=== PATIENT | male | born 1945 | race Asian ===

== ENCOUNTER 2018-07-31 12:19 | Inpatient (IN) | payer OTHER ==
[~2018-07-31] VITALS: Ht 167.6 cm; Wt 70.3 kg
--- NOTE | 2018-07-31 13:09 | NUR ---
PT TAKEN IN WHEELCHAIR TO ER BED 08
[2018-07-31 13:10] VITALS: BP 99/66
--- NOTE | 2018-07-31 13:22 | NUR ---
PER DAUGHTER PT WAS SEND FROM A [facility] PER INSURANCE PROTOCOL FOR EVALUATION AND ADMISSION BEFORE THE NURSING WILL ADMIT HIM FOR THE FIRST TIME. DENIES PAIN, SOB OR ANY COMPLAINT AT THIS TIME HX; DEMENTIA, ALZ RX; CLOPIDEGEL, ROSUVASTATIN, SILENOR, DUTARTERIDE, TAMSULOSIN, MEMANTINE
[2018-07-31] MEDS ORDERED: ONDANSETRON 4 MG/2 ML VIAL IVP PRN (13:50)
[2018-07-31] MEDS ORDERED: ACETAMINOPHEN 325 MG TAB PO PRN (13:50)
[2018-07-31] MEDS ORDERED: MEMA10TA PO (13:56)
[2018-07-31] MEDS ORDERED: DUTA0.5C PO (13:58)
[2018-07-31] MEDS ORDERED: CLOP75TA55 PO (13:59)
[2018-07-31] MEDS ORDERED: TAMS0.4C96 PO (14:00)
[2018-07-31] MEDS ORDERED: [UNRECOGNIZED DRUG - CODE] PO (14:01)
[2018-07-31] MEDS ORDERED: ROSU20TA PO (14:01)
[2018-07-31 14:33] LABS: BASOPHILS % (AUTO) 0.5 % (0.0-2.0); EOSINOPHILS # (AUTO) 0.2 K/uL (0-0.4); EOSINOPHILS % (AUTO) 2.8 % (0.0-4.0); HEMATOCRIT 41.7 % (36-52); HEMOGLOBIN 13.5 g/dL (12.0-18.0); LYMPHOCYTES # (AUTO) 1.6 K/uL (2.0-11.5); LYMPHOCYTES % (AUTO) 24.6 % (20.5-51.1); MEAN CORPUSCULAR HEMOGLOBIN 32 pg (27-31); MEAN CORPUSCULAR HGB CONC 32 g/dL (33-37); MEAN CORPUSCULAR VOLUME 97.9 fL (80-94); MONOCYTES # (AUTO) 0.6 K/uL (0.8-1.0); MONOCYTES % (AUTO) 9.4 % (1.7-9.3); NEUTROPHILS % (AUTO) 62.7 % (42.2-75.2); PLATELET COUNT (AUTO) 213 K/uL (140-450); RED BLOOD CELL COUNT(AUTO) 4.26 MIL/uL (4.20-6.10); RED CELL DISTRIBUTION WIDTH 13.9 % (11.6-13.7); WHITE BLOOD COUNT (AUTO) 6.4 K/uL (4.8-10.8)
[2018-07-31 15:00] VITALS: BP 107/59
--- NOTE | 2018-07-31 15:02 | NUR ---
Patient will be admitted to care of DR KIRAN. Admited to MS. Will go to room 106A. Belongings list completed. Report to ANTOINE RODRIGUEZ.
--- NOTE | 2018-07-31 15:15 | NUR ---
Admitted from ED, with chief complaint of GENERALIZED WEAKNESS. PT AAOX2, CONFUSED WITH HX OF DEMENTIA AND ALZHEIMER'S. NO SOB NOTED. NO C/O PAIN AT THIS TIME. IV TO LT AC PATENT AND INTACT. CHEST CLEAR. ABDOMEN SOFT, BOWEL SOUNDS PRESENT. NO EDEMA NOTED. PT IS A 73 y/o ,Male, Cooperative,oriented to call light, bed, phone,television, bathroom, smoking policy,visiting hours, procedures, ID bracelet on. Belongings list checked. PT'S DAUGHTER AT THE BEDSIDE. CALL LIGHT WITHIN REACH, BED ON LOWEST POSITION. FALL RISK INITIATED. PT AND DAUGHTER VERBALIZED UNDERSTANDING.
[2018-07-31 15:21] LABS: ANION GAP 8.7 (8-16); CARBON DIOXIDE 30.5 mmol/L (21-32); CHLORIDE 104 mmol/L (98-107); CREATININE 0.9 mg/dL (0.7-1.3); GLUCOSE 106 mg/dL (74-106); POTASSIUM 4.2 mmol/L (3.5-5.1); SODIUM SERUM 139 mmol/L (136-145); UREA NITROGEN, BLOOD 11 mg/dL (7-18)
[2018-07-31 15:28] LABS: ALBUMIN 3.5 g/dL (3.4-5.0); ASPARTATE AMINOTRANSFERASE 26 U/L (15-37); TOTAL BILIRUBIN 0.3 mg/dL (0.0-1.0)
[2018-07-31 15:51] LABS: PROTHROMBIN TIME 9.4 secs (10.8-13.4)
[2018-07-31 15:54] LABS: MAGNESIUM 2.2 mg/dL (1.8-2.4)
[2018-07-31 15:55] LABS: FREE T4 (FREE THYROXINE) 0.84 ng/dL (0.76-1.46); PHOSPHORUS 3.3 mg/dL (2.5-4.9); THYROID STIMULATING HORMONE 0.67 uIU/mL (0.34-3.74)
[2018-07-31] MEDS: NACL 0.9% 1,000 ML IV SCH (17:54)
--- NOTE | 2018-07-31 18:00 | NUR ---
PT PULLED OUT PRESENT IV, RESTARTED A NEW LINE ON LT HNAD WITH GAUGE 20, SITE WRAPPED WITH KERLIX.
--- NOTE | 2018-07-31 18:14 | NUR ---
CALLED PT'S DAUGHTER KIMBERLI TO BRING ALL THE PT'S HOME MEDICATIONS, STATED SHE WILL COME BY TOMORROW TO BRING ALL THE MEDS.
--- NOTE | 2018-07-31 18:45 | NUR ---
URINE SPECIMEN AND INFLUENZA A&B COLLECTED AND SENT TO LAB.
--- NOTE | 2018-07-31 19:05 | NUR ---
PT AWAKE, WATCHING TV. NO SOB NOTED. NO SIGNS OF PAIN. ENDORSED TO NEXT SHIFT NURSE FOR CONTINUITY OF CARE.
--- NOTE | 2018-07-31 19:20 | NUR ---
RECEIVED BEDSIDE REPORT FROM AM NURSE. PT AAOX2, CONFUSED WITH HX OF DEMENTIA AND ALZHEIMER'S. NO SOB NOTED. NO C/O PAIN AT THIS TIME. IV TO LEFT HAND, PATENT AND INTACT. CHEST CLEAR. ABDOMEN SOFT, BOWEL SOUNDS PRESENT. NO EDEMA NOTED. FALL RISK MAINTAINED. CALL LIGHT WITHIN REACH, BED ON LOWEST POSITION. WILL MONITOR
[2018-07-31 19:36] LABS: APPEARANCE,URINE CLEAR (CLEAR); BILIRUBIN,URINE NEGATIVE (NEGATIVE); BLOOD, URINE NEGATIVE (NEGATIVE); COLOR,URINE YELLOW (YELLOW); LEUKOCYTE ESTERASE ,URINE NEGATIVE (NEGATIVE); NITRITE, URINE NEGATIVE (NEGATIVE); UGLUCOSE NEGATIVE (NEGATIVE)
[2018-07-31 20:00] VITALS: BP 117/67
[2018-07-31] MEDS: SIMVASTATIN 40 MG TAB PO SCH (21:04)
[2018-07-31] MEDS: DOCUSATE SODIUM 100 MG GELCAP PO SCH (21:04)
--- NOTE | 2018-07-31 23:00 | NUR ---
PT WANTING TO AMBULATE, ASSISTED TO AMBULATE WITHIN THE ROOM AND HALLWAY BY CMM INSPECTOR WITH THE USE OF THE CANE. PT TOLERATING WELL
[2018-08-01] VITALS: BP 117/68
--- NOTE | 2018-08-01 02:00 | NUR ---
PT ATTEMPTED TO PULL IV ON LEFT HAND. STILL INTACT AND PATENT, REINFORCED W/ KERLIX TO PREVENT PT PULLING IV.
--- NOTE | 2018-08-01 03:00 | NUR ---
PT TRYING TO GET UP ON HIS OWN, AMBULATED W/ STANDBY ASSIST TO THE BATHROOM.TOLERATING WELL. PT IN STABLE CONDIITION
[2018-08-01 04:00] VITALS: BP 117/67
--- NOTE | 2018-08-01 07:03 | NUR ---
WILL ENDORSE TO NEXT SHIFT PT IN STABLE CONDITION.
--- NOTE | 2018-08-01 07:30 | NUR ---
RECEIVED PT ON BED AAOX2, CONFUSED. NO SOB NOTED, NO C/O PAIN AT THIS TIME. IV TO LT HAND PATENT AND INTACT. CHEST, DIMINISHED AIR ENTRY TO THE BASES, OTHERWISE CLEAR. ABDOMEN SOFT, BOWEL SOUNDS PRESENT. BED ON LOWEST POSITION, BED ALARM ON, CALL LIGHT WITHIN REACH. PT VERBALIZED PARTIAL UNDERSTANDING.
[2018-08-01 07:45] LABS: BASOPHILS # (AUTO) 0.1 K/uL (0.00-0.22); BASOPHILS % (AUTO) 0.9 % (0.0-2.0); EOSINOPHILS # (AUTO) 0.3 K/uL (0-0.4); EOSINOPHILS % (AUTO) 3.8 % (0.0-4.0); HEMOGLOBIN 12.4 g/dL (12.0-18.0); LYMPHOCYTES # (AUTO) 2.6 K/uL (2.0-11.5); LYMPHOCYTES % (AUTO) 38.1 % (20.5-51.1); MEAN CORPUSCULAR HEMOGLOBIN 32 pg (27-31); MEAN CORPUSCULAR HGB CONC 33 g/dL (33-37); MEAN CORPUSCULAR VOLUME 97.8 fL (80-94); MONOCYTES # (AUTO) 0.6 K/uL (0.8-1.0); MONOCYTES % (AUTO) 9.2 % (1.7-9.3); NEUTROPHILS # (AUTO) 3.2 K/uL (1.8-7.7); PLATELET COUNT (AUTO) 198 K/uL (140-450); RED BLOOD CELL COUNT(AUTO) 3.88 MIL/uL (4.20-6.10); RED CELL DISTRIBUTION WIDTH 13.9 % (11.6-13.7); WHITE BLOOD COUNT (AUTO) 6.8 K/uL (4.8-10.8)
[2018-08-01 08:00] VITALS: BP 148/82
--- NOTE | 2018-08-01 08:15 | NUR ---
CALLED PT' S DAUGHTER KIMBERLI #[phone] AND REMINDED HER TO BRING PT'S HOME MEDS, KIMBERLI STATED SHE WILL BE HERE AROUND LUNCH TIME.
[2018-08-01 08:18] LABS: MAGNESIUM 2.2 mg/dL (1.8-2.4); PHOSPHORUS 3.7 mg/dL (2.5-4.9)
[2018-08-01 08:22] LABS: ANION GAP 11.6 (8-16); CARBON DIOXIDE 29.4 mmol/L (21-32); CHLORIDE 103 mmol/L (98-107); CREATININE 0.8 mg/dL (0.7-1.3); GLUCOSE 94 mg/dL (74-106); SODIUM SERUM 140 mmol/L (136-145); UREA NITROGEN, BLOOD 18 mg/dL (7-18)
--- NOTE | 2018-08-01 08:30 | NUR ---
PT PULLED OUT PRESENT IV WHILE IN BED. RESTARTED A NEW LINE ON RT HAND WITH GAUGE 20, SITE WRAPPED WITH KERLIX.
--- NOTE | 2018-08-01 08:38 | NUR ---
PATIENT HAS BEEN SCREENED AND CATEGORIZED MODERATE NUTRITION RISK. PATIENT WILL BE SEEN WITHIN 3-5 DAYS OF ADMISSION. 08/03/18 08/05/[address]
[2018-08-01] MEDS ORDERED: NON-FORMULARY ITEM (Rosuvastatin Calcium* (Crestor*) 20 MG) PO SCH (09:00)
[2018-08-01] MEDS: TAMSULOSIN 0.4 MG CAP PO SCH (09:02)
[2018-08-01] MEDS: DOCUSATE SODIUM 100 MG GELCAP PO SCH ×2 (09:03→22:07)
[2018-08-01] MEDS: CLOPIDOGREL 75 MG TAB PO SCH (09:03)
--- NOTE | 2018-08-01 09:30 | NUR ---
PHYSICAL THERAPY ON GOING AT THE BEDSIDE.
[2018-08-01 09:32] LABS: CHOL/HDL RATIO 2.8 (1-4.5)
--- NOTE | 2018-08-01 10:00 | NUR ---
PT HAS BEEN GOING TO THE BATHROOM CONTINENTLY WITH ASSISTANCE. ACTIVITY TOLERATED WELL.
--- NOTE | 2018-08-01 11:30 | NUR ---
PT WHEELED TO CT DEPT IN STABLE CONDITION.
--- NOTE | 2018-08-01 11:45 | NUR ---
PT CAME BACK FROM CT SCAN DEPT IN STABLE CONDITION. NO COMPLAINTS MADE.
--- NOTE | 2018-08-01 12:05 | NUR ---
PT'S DAUGHTER KIMBERLI CAME PT'S HOME MEDS. MEDS GIVEN TO PHARMACY FOR SAFE KEEPING. PT'S BELONGING'S LIST UP DATED.
[2018-08-01] MEDS ORDERED: MEMANTINE 21 MG PO SCH (12:31)
--- NOTE | 2018-08-01 12:43 | NUR ---
CHART REVIEW DONE.
[2018-08-01] MEDS: NACL 0.9% 1,000 ML IV SCH (13:49)
--- NOTE | 2018-08-01 14:05 | NUR ---
PT RESTING QUIETLY IN BED. NO SOB NOTED. NO SIGNS OF PAIN.
[2018-08-01 16:00] VITALS: BP 107/65
--- NOTE | 2018-08-01 16:00 | NUR ---
PT KEEPS ON GOING OUT OF BED TO HAV A BOWEL MOVEMENT BUT UNABLE TO. PER DAUGHTER UPON ADMISSIION THAT PT IS GOING EVERY DAY. NO BM NOTED SINCE THIS MORNING. DR. GONZALEZ NOTIFIED AND WILL GIVE ORDER.
--- NOTE | 2018-08-01 16:16 | NUR ---
Practice Professional Note: I faxed inquiry to [facility] per patient's daughter Merry's request . Merry requested assistance with intermodal dispatcher prison snf placement for patient. I received a call from Colin at [facility] , she stated they are able to accept patient and bed will be available on 08/03/18, made aware. Colin is aware patient will need prison prison placement. I called and spoke with Merry to inform her patient has been accepted at [facility] and will be transfer once physician determines patient is medically stable. She verbalized understanding.
[2018-08-01] MEDS ORDERED: MAGNESIUM HYDROXIDE 2400 MG/30 ML UDC PO SCH (16:19)
--- NOTE | 2018-08-01 18:15 | NUR ---
PT CONSUMED 100% ON DINNER SERVED. FOOD TOLERATED WELL.
--- NOTE | 2018-08-01 19:14 | NUR ---
PT AWAKE, WALKING IN THE HALLWAY WITH STATION INSTALLER AND REPAIRER. ACTIVITY TOLERATED WELL. ENDORSED TO NEXT SHIFT NURSE FOR CONTINUITY OF CARE.
--- NOTE | 2018-08-01 19:40 | NUR ---
RECEIVED BEDSIDE REPORT FROM AM NURSE. PT AAOX2, CONFUSED WITH HX OF DEMENTIA AND ALZHEIMER'S. NO SOB NOTED. NO C/O PAIN AT THIS TIME. IV TO LEFT HAND, PATENT AND INTACT. PT WALKING IN THE UNIT WITH 1 ASSIST USING CANE. NO EDEMA NOTED. FALL RISK MAINTAINED WILL MONITOR
[2018-08-01] MEDS ORDERED: QUEtiapine FUMARATE 25 MG TAB PO SCH (21:00)
--- NOTE | 2018-08-01 21:00 | NUR ---
PT AMBULATING WITH CANE WITH 1 PERSON ASSIST STEAM TRAP WORKER, PT FALL RISK. MAINTAINED FALL RISK PRECAUTION. STAFF KEEPING WATCH ON PT, TRYING TO AMBULATE BY HIMSELF.ABLE TO DO SO WITH 1 ASSIST.
--- NOTE | 2018-08-01 21:10 | NUR ---
PT PULLED OUT PRESENT IV ON THE RIGHT HAND. PT WAS ON TKO .
--- NOTE | 2018-08-01 21:30 | NUR ---
PT ABLE TO TOLERATE MEDICATIONS ADMINISTERED, COUGH STILL PRESENT. NO OTHER COMPLAINTS.WILL CONTINUE TO MONITOR Addendum: 08/02/18 at 0300 by Marleny Lazaro RN PT ABLE TO TOLERATE MEDICATIONS ADMINISTERED, NO OTHER COMPLAINTS.WILL CONTINUE TO MONITOR
--- NOTE | 2018-08-01 22:00 | NUR ---
MEDICATIONS ORDERED GIVEN, PT ABLE TO SWALLOW WITH ASPIRATION PRECAUTION.
[2018-08-01] MEDS: SIMVASTATIN 40 MG TAB PO SCH (22:06)
--- NOTE | 2018-08-02 01:00 | NUR ---
PT SLEEPING, PT IN STABLE CONDITION.
--- NOTE | 2018-08-02 03:07 | NUR ---
INFORMED THAT EARLIER PT PULLED IV. NO IV DUE MEDS,ONLY P.O MEDS DUE. TRY TO REINSERT ONCE IV MEDS NEEDED. DR. GUTIERREZ AWARE.
[2018-08-02 05:58] LABS: BASOPHILS % (AUTO) 0.7 % (0.0-2.0); EOSINOPHILS # (AUTO) 0.2 K/uL (0-0.4); HEMATOCRIT 36.8 % (36-52); HEMOGLOBIN 11.9 g/dL (12.0-18.0); LYMPHOCYTES # (AUTO) 2.1 K/uL (2.0-11.5); LYMPHOCYTES % (AUTO) 36.3 % (20.5-51.1); MEAN CORPUSCULAR HEMOGLOBIN 32 pg (27-31); MEAN CORPUSCULAR HGB CONC 32 g/dL (33-37); MEAN CORPUSCULAR VOLUME 97.4 fL (80-94); MONOCYTES # (AUTO) 0.6 K/uL (0.8-1.0); MONOCYTES % (AUTO) 10.3 % (1.7-9.3); NEUTROPHILS # (AUTO) 2.8 K/uL (1.8-7.7); NEUTROPHILS % (AUTO) 48.7 % (42.2-75.2); PLATELET COUNT (AUTO) 205 K/uL (140-450); RED BLOOD CELL COUNT(AUTO) 3.78 MIL/uL (4.20-6.10); RED CELL DISTRIBUTION WIDTH 13.9 % (11.6-13.7); WHITE BLOOD COUNT (AUTO) 5.8 K/uL (4.8-10.8)
[2018-08-02 06:00] VITALS: BP 145/75
--- NOTE | 2018-08-02 07:12 | NUR ---
ENDORSED REPORT TO AM SHIFT NURSE FOR CONTINUITY OF CARE. PT NO COMPLAINTS AT THIS TIME, IN STABLE CONDITION.
[2018-08-02] MEDS ORDERED: HEPA500056 IV (07:15)
[2018-08-02] MEDS ORDERED: ACET-1182 PO (07:15)
[2018-08-02] MEDS ORDERED: QUET25TA46 PO (07:15)
[2018-08-02] MEDS ORDERED: DOCU-299 PO (07:15)
[2018-08-02] MEDS ORDERED: DONE10TA10 PO (07:15)
[2018-08-02 08:51] LABS: MAGNESIUM 2.3 mg/dL (1.8-2.4); PHOSPHORUS 3.9 mg/dL (2.5-4.9)
[2018-08-02 08:53] LABS: CARBON DIOXIDE 28.8 mmol/L (21-32); CHLORIDE 105 mmol/L (98-107); CREATININE 0.8 mg/dL (0.7-1.3); GLUCOSE 102 mg/dL (74-106); POTASSIUM 3.8 mmol/L (3.5-5.1); SODIUM SERUM 143 mmol/L (136-145); UREA NITROGEN, BLOOD 15 mg/dL (7-18)
[2018-08-02] MEDS: TAMSULOSIN 0.4 MG CAP PO SCH (09:46)
[2018-08-02] MEDS: DOCUSATE SODIUM 100 MG GELCAP PO SCH ×2 (09:46→20:38)
[2018-08-02] MEDS: MEMANTINE 21 MG PO SCH (09:47)
[2018-08-02] MEDS: CLOPIDOGREL 75 MG TAB PO SCH (09:47)
--- NOTE | 2018-08-02 10:31 | NUR ---
CHART REVIEW DONE. CALLED [facility] AND SPOKE WITH WILFREDO ABOUT AUTH FOR [place]SP[place] [facility] [place] SHE SAID TO FAX HER THE FACE SHEET, WHICH I DID.
--- NOTE | 2018-08-02 12:21 | NUR ---
Garment Turner Note: Per Colin from [facility] , bed for patient will be available tomorrow 08/03/18, room 31b, accepting physician is .
[2018-08-02] MEDS: NACL 0.9% 1,000 ML IV SCH (13:49)
--- NOTE | 2018-08-02 14:25 | NUR ---
PATIENT IS ASLEEP IN BED. NO S/S OF DISTRESS NOTED. WILL CONTINUE TO MONITOR
--- NOTE | 2018-08-02 15:26 | NUR ---
PATIENT BEING EVALUATED BY PSYCH DR DR BERTRAND.
[2018-08-02 16:00] VITALS: BP 128/81
--- NOTE | 2018-08-02 19:20 | NUR ---
RECEIVED REPORT FROM FREDY RN DAYSHIFT NURSE AT BEDSIDE FOR CONTINUITY OF CARE, PT IN STABLE CONDITION.
--- NOTE | 2018-08-02 19:20 | NUR ---
PATIENT REPORT GIVEN AT BEDSIDE. PATIENT ENDORSED IN STABLE CONDITION
--- NOTE | 2018-08-02 20:00 | NUR ---
PT IN BED ALL FALLS PRECAUTIONS IN PLACE. PT DENIES PAIN, HE IS LYING IN BED WATCHING TV V/S FOLLOWS T 98.4 P 72 R 18 B/P 106/61 02 96% WITH R/A.
[2018-08-02] MEDS: DONEPEZIL 10 MG TAB PO SCH (20:37)
[2018-08-02] MEDS: QUEtiapine FUMARATE 25 MG TAB PO SCH (20:40)
[2018-08-02] MEDS: SIMVASTATIN 40 MG TAB PO SCH (20:41)
--- NOTE | 2018-08-02 21:00 | NUR ---
PT GIVEN DUE MEDS AT THIS TIME, HEPARIN SC IN LEFT DELTOID, ARICEPT, COLACE. DUTASTERIDE AND DOXEPIN, SEROQUEL AND ZOROC GIVEN ORDERED.
--- NOTE | 2018-08-02 21:34 | NUR ---
PT ASSISTED TO TOILET AND BACK AND WAS GIVEN PM SNACK. PT ALSO GIVEN NEW PITCHER OF WATER. BED ALARM ON AND FREQUENT CHECKS RENDERED.
--- NOTE | 2018-08-02 22:03 | NUR ---
PT PULLED CALL DASH, BUT UNABLE TO EXPRESS ANY WANTS/NEEDS. [employer] SYSTEM USED DRILLING MACHINE RUNNER PRICILA KUMAR# [id number]. PT SAID THROUGH THE THAT HE WAS NOT IN PAIN AND THAT HE DIDN'T NEED ANY ASSISTANCE. PT REMINDED VIA DRILLING MACHINE RUNNER THAT IT IS LATE AND THAT HE IS A FALLS RISK, PT ENCOURAGED TO GO TO SLEEP. PT VERBALIZED UNDERSTANDING. PT STILL WALKING AROUND THE ROOM. FREQUENT CHECKS RENDERED.
--- NOTE | 2018-08-02 23:03 | NUR ---
PT LYING IN BED AWAKE, NO S/S OF PAIN OR DISTRESS NOTED. FREQUENT CHECKS RENDERED.
--- NOTE | 2018-08-03 00:30 | NUR ---
PT UP AND ABOUT IN ROOM. PT ASSISTED BACK TO BED V/S FOLLOWS T 97.7 P 57 R 18 B/P 141/72 02 98% ON R/A. NO S/S OF PAIN OR DISTRESS NOTED.
--- NOTE | 2018-08-03 02:00 | NUR ---
PT UP AND WANDERING AROUND ROOM, PT REDIRECTED TO BED NUT PREFERS TO SIT AT EDGE OF BED AT THIS TIME.
--- NOTE | 2018-08-03 02:30 | NUR ---
PT NOW LYING IN BED NO S/S OF PAIN OR DISTRESS NOTED.
--- NOTE | 2018-08-03 04:00 | NUR ---
PT SLEEPING IN BED NO S/S OF PAIN OR DISTRESS NOTED.
[2018-08-03 06:00] VITALS: BP 141/72
[2018-08-03 07:09] LABS: BASOPHILS # (AUTO) 0.1 K/uL (0.00-0.22); BASOPHILS % (AUTO) 0.9 % (0.0-2.0); EOSINOPHILS # (AUTO) 0.3 K/uL (0-0.4); EOSINOPHILS % (AUTO) 4.4 % (0.0-4.0); HEMATOCRIT 36.6 % (36-52); HEMOGLOBIN 11.9 g/dL (12.0-18.0); LYMPHOCYTES # (AUTO) 2.6 K/uL (2.0-11.5); LYMPHOCYTES % (AUTO) 41.1 % (20.5-51.1); MEAN CORPUSCULAR HEMOGLOBIN 32 pg (27-31); MEAN CORPUSCULAR HGB CONC 33 g/dL (33-37); MEAN CORPUSCULAR VOLUME 97.9 fL (80-94); MONOCYTES # (AUTO) 0.6 K/uL (0.8-1.0); MONOCYTES % (AUTO) 10.3 % (1.7-9.3); NEUTROPHILS # (AUTO) 2.7 K/uL (1.8-7.7); NEUTROPHILS % (AUTO) 43.3 % (42.2-75.2); PLATELET COUNT (AUTO) 201 K/uL (140-450); RED BLOOD CELL COUNT(AUTO) 3.73 MIL/uL (4.20-6.10); RED CELL DISTRIBUTION WIDTH 14.1 % (11.6-13.7); WHITE BLOOD COUNT (AUTO) 6.2 K/uL (4.8-10.8)
--- NOTE | 2018-08-03 07:25 | NUR ---
REPORT GIVEN AT BEDSIDE TO FREDY RODRIGUEZ FOR CONTINUITY OF CARE, PT IN STABLE CONDITION.
--- NOTE | 2018-08-03 07:25 | NUR ---
RECEIVED PATIENT REPORT AT BEDSIDE. PATIENT IS ASLEEP BUT AROUSABLE. NO S/S OF DISTRESS NOTED. FALL PRECAUTIONS IN PLACE. WILL CONTINUE TO MONITOR
--- NOTE | 2018-08-03 09:40 | NUR ---
ADMINISTERED PATIENT'S SCHEDULED MEDICATIONS. PATIENT TOLERATED WELL.
[2018-08-03] MEDS: MEMANTINE 21 MG PO SCH (09:43)
[2018-08-03] MEDS: TAMSULOSIN 0.4 MG CAP PO SCH (09:43)
[2018-08-03] MEDS: CLOPIDOGREL 75 MG TAB PO SCH (09:43)
[2018-08-03] MEDS: DOCUSATE SODIUM 100 MG GELCAP PO SCH ×2 (09:43→21:10)
[2018-08-03 09:50] LABS: ANION GAP 9.4 (8-16); CARBON DIOXIDE 30.2 mmol/L (21-32); CHLORIDE 105 mmol/L (98-107); CREATININE 0.9 mg/dL (0.7-1.3); GLUCOSE 91 mg/dL (74-106); POTASSIUM 3.6 mmol/L (3.5-5.1); SODIUM SERUM 141 mmol/L (136-145); UREA NITROGEN, BLOOD 19 mg/dL (7-18)
[2018-08-03] MEDS ORDERED: COMMUNICATION ORDER MC PRN (12:05)
--- NOTE | 2018-08-03 13:00 | NUR ---
Special Procedure Tech Note: Per Colin from [facility] , bed for patient will be available tomorrow 08/04/18, room 31b, accepting physician is .
[2018-08-03] MEDS: NACL 0.9% 1,000 ML IV SCH (13:49)
--- NOTE | 2018-08-03 14:33 | NUR ---
Authorization number [id number] given by Keely from [facility] for transort with [facility].
--- NOTE | 2018-08-03 14:53 | NUR ---
Transportation arranged with [facility]. Pt will be picked up tomorrow at 1300 and transported to [address] [phone] room 31 Abrahan Rosenberg RN for transport schedule tomorrow.
[2018-08-03 16:00] VITALS: BP 123/69
--- NOTE | 2018-08-03 19:30 | NUR ---
PATIENT REPORT GIVEN AT BEDSIDE. PATIENT ENDORSED IN STABLE CONDITION
--- NOTE | 2018-08-03 19:31 | NUR ---
RECD. SITTING ON BED, AWAKE, A/OX1, CONFUSED BUT FOLLOWS INSTRUCTIONS. NO IV LINE, REFUSED. REORIENTED TO HOSPITAL SETTING. SAFETY MEASURES ENFORCED. DENIES PAIN 0/10.
--- NOTE | 2018-08-03 20:00 | NUR ---
Patient's Plan of Care was discussed and reviewed with BINDING BENCH WORKER: TORRES TAN
--- NOTE | 2018-08-03 20:30 | NUR ---
WENT OUT OF THE ROOM, ASSISTED BACK TO BED.
[2018-08-03] MEDS ORDERED: SILENOR 6 MG PO SCH (21:00)
[2018-08-03] MEDS: QUEtiapine FUMARATE 25 MG TAB PO SCH (21:10)
[2018-08-03] MEDS: SIMVASTATIN 40 MG TAB PO SCH (21:10)
[2018-08-03] MEDS: DONEPEZIL 10 MG TAB PO SCH (21:12)
--- NOTE | 2018-08-03 21:15 | NUR ---
DUE PO MEDICATIONS GIVEN, COOPERATIVE.
--- NOTE | 2018-08-03 22:00 | NUR ---
STILL AWAKE, WATCHING TV.
--- NOTE | 2018-08-03 22:30 | NUR ---
SLEEPING IN BED.
--- NOTE | 2018-08-03 23:00 | NUR ---
WOKE UP, WANTS TO GO OUT OF THE ROOM, ASSISTED BACK TO BED. WALKS IN THE SINK AND TALKS TO THE MIRROR. THEN GOT OUT AND WANTS TO ENTER NEARBY ROOM, REORIENTED TO HOSPITAL SETTING. STILL VERY CONFUSED.
--- NOTE | 2018-08-03 23:15 | NUR ---
TRIES TO FIGHT WHEN DIRECTED TO GO BACK TO ROOM, SECURITY CAME AND ASSISTED PATIENT TO GO BACK TO BED.
--- NOTE | 2018-08-03 23:30 | NUR ---
SLEEPING COMFORTABLY IN BED.
[2018-08-04] VITALS: BP 130/68
--- NOTE | 2018-08-04 06:00 | NUR ---
WOKE UP EARLY, REORIENTED TO HOSPITAL SETTING AND ASSISTED BACK TO BED.
--- NOTE | 2018-08-04 06:58 | NUR ---
CONDITION REMAIN STABLE. WILL ENDORSE TO AM NURSE FOR CONTINUITY OF CARE.
--- NOTE | 2018-08-04 07:10 | NUR ---
RECEIVED REPORT FROM QUARTER FOLDER NURSE. PATIENT SITTING ON BED. NO DISTRESS NOTED. DENIES ANY PAIN. FLACC 0. AAOX1, CONFUSED, SKIN COLOR APPROPRIATE TO ETHNICITY, WARM TO TOUCH. SKIN INTACT. NO IV SITE NOTED PATIENT CONTINUES TO PULL OUT PER QUARTER FOLDER B2B SALES REPRESENTATIVE REPORTS. ABDOMEN SOFT, NON-DISTENDED. CANE AT BEDSIDE WITHIN REACH. ABLE TO AMBULATE WITH LEFT LEG LIMP. SAFETY MEASURES IN PLACE, CALL LIGHT WITHIN REACH. WILL CONTINUE TO MONITOR.
[2018-08-04 08:00] VITALS: BP 131/83
[2018-08-04] MEDS: CLOPIDOGREL 75 MG TAB PO SCH (08:54)
[2018-08-04] MEDS: DOCUSATE SODIUM 100 MG GELCAP PO SCH (08:54)
[2018-08-04] MEDS: TAMSULOSIN 0.4 MG CAP PO SCH (08:55)
[2018-08-04] MEDS: MEMANTINE 21 MG PO SCH (08:59)
--- NOTE | 2018-08-04 09:01 | NUR ---
SCHEDULED MEDICATIONS DUE GIVEN. WILL CONTINUE TO MONITOR.
--- NOTE | 2018-08-04 11:35 | NUR ---
PATIENT SITTING DOWN IN BED, INTERMITTENT CONFUSION. WILL CONTINUE TO MONITOR.
--- NOTE | 2018-08-04 12:44 | NUR ---
CALLED [facility] AND GAVE REPORT TO MICHAEL SHETTY REGARDING PATIENT'S TRANSFER LATER TODAY. ANSWERED ALL OF SENA'S QUESTIONS. NOTIFIED HER THAT TRANSPORT TIME WAS AT 1300 BY [facility]. SENA VERBALIZED UNDERSTANDING AND WILL AWAIT FOR PATIENT'S ARRIVAL. WILL CONTINUE TO MONITOR.
--- NOTE | 2018-08-04 12:51 | NUR ---
CALLED PATIENT'S DAUGHTER KIMBERLI LO AND NOTIFIED HER OF PATIENT'S TRANSFER [place] [facility] TODAY. KIMBERLI VERBALIZED COMPLETE UNDERSTANDING AND VERBALIZED THAT SHE WILL VISIT HIM AT THE SNF AT A LATER TIME.
--- NOTE | 2018-08-04 13:00 | NUR ---
DISCHARGE INSTRUCTIONS PROVIDED TO PATIENT IN [place] USING CARD SCRAPER PHONE. FOLLOW-UP INSTRUCTIONS WITH PCP AND SNF MD PROVIDED, NEW/CHANGED MEDICATION REGIMEN, AND DIET REGIMEN PROVIDED. PATIENT HAS HX OF DEMENTIA, REINFORCEMENT OF TEACHINGS NEEDED. NO IV SITE CURRENTLY PRESENT. PATIENT TO GET DRESSED AND AWAITING FOR [facility] TO ARRIVE TO TRANSFER TO [facility] [place]. WILL CONTINUE TO MONITOR.
--- NOTE | 2018-08-04 13:40 | NUR ---
[facility] ON UNIT READY TO TAKE PATIENT TO [facility]. ALL BELONGINGS WITH PATIENT. PATIENT TRANSFERRED TO [facility] AT THIS TIME IN STABLE CONDITION VIA [facility].
== END 2018-08-04 13:40 | disposition home or self-care (01) | DRG 73 ==
LOC: MED 12:19 → MTU 13:49
PROVIDERS: ADMIT General Practice; ATTEND General Practice
DX: G90.9 Disorder of the autonomic nervous system, unspecified (principal); G93.41 Metabolic encephalopathy; I69.954 Hemiplegia and hemiparesis following unspecified cerebrovascular disease affecting left non-dominant side; E66.3 Overweight; I10 Essential (primary) hypertension; E78.5 Hyperlipidemia, unspecified; N40.0 Benign prostatic hyperplasia without lower urinary tract symptoms; Z68.25 Body mass index [BMI] 25.0-25.9, adult; Z71.3 Dietary counseling and surveillance; F03.90 Unspecified dementia, unspecified severity, without behavioral disturbance, psychotic disturbance, mood disturbance, and anxiety
CPT/HCPCS: 36415; 70450; 71045; 80048; 80053; 82150; 83036; 83690; 83735; 83880; 84100; 84439; 84443; 84484; 85025; 85610; 85730; 87081; 87804; 93005; 97110; 97116; 97530; 99285; J1644; Q0092